=== PATIENT | female | born 2000 | race Caucasian/White ===

== ENCOUNTER 2025-01-07 21:17 | Emergency (ER) | payer OTHER ==
[2025-01-07 21:25] VITALS: BP 127/73; PULSE 77; RESP 16; TEMP 98.1; BMI 28.3
[2025-01-07] MEDS ORDERED: IBUPROFEN 600 MG TABLET (FP) PO ONE (22:14)
[2025-01-07] MEDS: IBUPROFEN 600 MG TABLET (FP) PO ONE (22:15)
== END 2025-01-07 22:42 | disposition home or self-care (01) ==
LOC: JERFT 21:17
DX: S93.402A Sprain of unspecified ligament of left ankle, initial encounter (principal); X50.1XXA Overexertion from prolonged static or awkward postures, initial encounter; Y93.41 Activity, dancing
CPT/HCPCS: 73610-TC-LT-FY; 99283-25

== ENCOUNTER 2025-01-17 09:18 | Inpatient (IN) | payer OTHER ==
[2025-01-17] MEDS: SODIUM CHLORIDE 0.9% 500 ML INFUS.BAG IV ONE ×2 (10:00→18:43)
[2025-01-17] MEDS: ACETAMINOPHEN 1000 MG/100 ML BAG IVPB ONE (10:20)
[2025-01-17 10:27] LABS: ABSOLUTE IMMATURE GRANULOCYTES 0.01 x10^3/uL (0.0-0.031); BASOPHILS # 0.02 x10^3/uL (0.01-0.08); EOSINOPHIL % 0.6 % (0.7-5.8); EOSINOPHILS # 0.03 x10^3/uL (0.04-0.36); MCHC 33.0 g/dl (32.2-35.5); MEAN CELL VOLUME 79.8 fl (79.4-94.8); MEAN PLT VOLUME 10.5 fl (9.4-12.3); MONOCYTE # 0.37 x10^3/uL (0.24-0.86); MONOCYTE % 6.8 % (4.7-12.5); RDW 12.9 % (12.1-16.5)
[2025-01-17] MEDS ORDERED: ACETAMINOPHEN INJECTION 100 ML ONE (10:31)
[2025-01-17 10:54] LABS: ALK PHOS 77.0 U/L (45-117); CO2 25.0 mmol/L (21-32); CREATININE 0.7 mg/dl (0.6-1.3); GLUCOSE,RANDOM 89.0 mg/dl (74-106); SGOT/AST 10.0 U/L (15-37); SGPT/ALT 13.0 U/L (7-52); TOT PROT 6.7 g/dl (6.4-8.2)
[2025-01-17] MEDS ORDERED: MECLIZINE HCL 25 MG TABLET (FP) ONE (10:57)
[2025-01-17] MEDS: MECLIZINE HCL 25 MG TABLET (FP) PO ONE (10:58)
[2025-01-17 17:21] LABS: HIV INTERPRETATION NEGATIVE (NEGATIVE)
[2025-01-17 17:28] VITALS: BMI 28.3
[2025-01-17 17:42] LABS: HCV DIAGNOSTIC IN-HOUSE W/RFLX NON-REACTIVE (NONREACTIVE)
[2025-01-17] MEDS ORDERED: ACETAMINOPHEN 325 MG TABLET (FP) PO PRN (18:09)
[2025-01-17 22:50] LABS: COCAINE, UR NEGATIVE (NEGATIVE)
[2025-01-17 22:51] LABS: METHADONE, UR NEGATIVE (NEGATIVE); OPIATES, URI NEGATIVE (NEGATIVE); PHENCYCLIDINE,URINE NEGATIVE (NEGATIVE); URINE AMPHETAMINES NEGATIVE (NEGATIVE); URINE BARBITURATES NEGATIVE (NEGATIVE); URINE BENZODIAZEPINES NEGATIVE (NEGATIVE)
[2025-01-18 08:03] LABS: MCHC 31.6 g/dl (32.2-35.5); MEAN CELL VOLUME 82.2 fl (79.4-94.8); MEAN PLT VOLUME 10.7 fl (9.4-12.3); RDW 13.2 % (12.1-16.5)
[2025-01-18 08:21] LABS: GLUCOSE,RANDOM 83.0 mg/dL (74-106); TOT PROT 6.6 g/dl (6.4-8.2)
[2025-01-18 08:22] LABS: CO2 25.0 mmol/L (21-32)
[2025-01-18 08:24] LABS: ALK PHOS 80.0 U/L (40-150)
[2025-01-18 08:26] LABS: SGPT/ALT 16.0 U/L (0-55)
[2025-01-18 08:27] LABS: CREATININE 0.77 mg/dL (0.55-1.3); SGOT/AST 13.0 U/L (5-34)
[2025-01-18 16:54] LABS: LDL CHOLESTEROL (ONLY SJRH) 112.0 mg/dL (5-100)
[2025-01-18] MEDS: PERPHENAZINE 4 MG TABLET PO SCH (21:24)
[2025-01-18] MEDS: PRAZOSIN HCL 1 MG CAPSULE PO SCH (21:24)
[2025-01-19 12:57] VITALS: BP 118/82; PULSE 65; RESP 18; TEMP 98.7
== END 2025-01-19 13:52 | disposition home or self-care (01) | DRG 111 ==
LOC: FER 09:18 → OBSVTOIN 11:13 → FM/S 11:13 → J4S 21:39
PROVIDERS: ATTEND Student in an Organized Health Care Education/Training Program
PROC: 4A10X4Z Monitoring of Central Nervous Electrical Activity, External Approach (ICD-10-PCS; principal; 2025-01-18)
DX: R42 Dizziness and giddiness (principal); G40.909 Epilepsy, unspecified, not intractable, without status epilepticus; F39 Unspecified mood [affective] disorder; J45.909 Unspecified asthma, uncomplicated; F43.10 Post-traumatic stress disorder, unspecified; F31.9 Bipolar disorder, unspecified
CPT/HCPCS: 36415; 70450-TC; 70486-TC; 71045-TC-FY; 72125-TC; 73630-TC-LT; 80053; 80061; 80307; 81003; 81015; 82533; 83735; 84146; 84443; 84484; 84703; 85025; 85027; 86618; 86780; 86803; 87086; 87389; 93005; 93306-TC; 95816; 97116-GP; 97161-GP; 99285-25